=== PATIENT | male | born 1965 | race Caucasian/White ===

== ENCOUNTER 2019-03-10 11:39 | Emergency (ER) | payer BC ==
[~2019-03-10] VITALS: Ht 177.8 cm; Wt 83.2 kg
[~2019-03-10 11:39] MED LIST: CHOLESTEROL; ESCITALOPRAM
[2019-03-10 11:53] VITALS: BP 138/74; TEMP 97.9
[2019-03-10 12:53] VITALS: PULSE 60
[2019-03-10] MEDS ORDERED: LIPITOR 40MG TA40 MG PO (13:21)
[2019-03-10] MEDS ORDERED: PROTONIX 40MG T40 MG PO (13:21)
== END 2019-03-10 12:53 | disposition home or self-care (01) ==
LOC: COL.ER 11:39
DX: S63.254A Unspecified dislocation of right ring finger, initial encounter (principal); I10 Essential (primary) hypertension; F41.9 Anxiety disorder, unspecified; F32.9 Major depressive disorder, single episode, unspecified; E78.5 Hyperlipidemia, unspecified; Z98.890 Other specified postprocedural states; W11.XXXA Fall on and from ladder, initial encounter; Y92.009 Unspecified place in unspecified non-institutional (private) residence as the place of occurrence of the external cause